=== PATIENT | female | born 1980 | race Caucasian/White ===

== ENCOUNTER 2022-10-07 10:36 | Emergency (ER) | payer OTHER, SELFPAY ==
[2022-10-07 10:38] VITALS: BP 129/79; PULSE 86; RESP 14; TEMP 36.6; O2SAT 100; BMI 26.6
--- NOTE | 2022-10-07 11:14 | CT_ITS ---
STUDY: CT CERVICAL SPINE WITHOUT CONTRAST REASON FOR EXAM: Female, 42 years old. Injury due to a fall. RADIATION DOSAGE (If Supplied By Facility): CTDIvol = ( 25.36 ) mGy, DLP = ( 812.98 ) mGycm TECHNIQUE: High resolution transaxial imaging was performed without contrast material. Sagittal and coronal images were reconstructed. Individualized dose optimization techniques were used for this CT. COMPARISON: None FINDINGS: Normal craniovertebral junction. Normal anterior atlantoaxial articulation. Normal odontoid process. There is straightening of the normal cervical lordosis. Normal vertebral bodies and posterior osseous elements. C2-3: Normal endplates. Normal disc height and morphology. Normal central canal and intervertebral neuroforamina. C3-4: Normal endplates. Normal disc height and morphology. Normal central canal and intervertebral neuroforamina. C4-5: Normal endplates. Normal disc height and morphology. Normal central canal and intervertebral neuroforamina. C5-6: Normal endplates. Normal disc height and morphology. Normal central canal and intervertebral neuroforamina. C6-7: Normal endplates. Normal disc height and morphology. Normal central canal and intervertebral neuroforamina. C7-T1: Normal endplates. Normal disc height and morphology. Normal central canal and intervertebral neuroforamina. Normal visualized soft tissue structures. CT/Spine Cervical without Contras IMPRESSION: Normal unenhanced CT examination of the cervical spine. Electronically Signed: Diego Stoner MD at 11:57 EST ,
--- NOTE | 2022-10-07 11:14 | EKG12_ITS ---
Test Reason : SYNCOPE Blood Pressure : / mmHG Vent. Rate : 084 BPM Atrial Rate : 084 BPM P-R Int : 136 ms QRS Dur : 074 ms QT Int : 360 ms P-R-T Axes : 032 068 062 degrees QTc Int : 425 ms Normal sinus rhythm Normal ECG Confirmed by MARGARITO LOWERY, AISSATOU ([id number]), sound editor TANISHA SALAMANCA ([id number]) on 10/08/2022 11:40:06 AM Referred By: Confirmed By:AISSATOU PIMENTEL MD
--- NOTE | 2022-10-07 11:14 | CT_ITS ---
STUDY: CT BRAIN WITHOUT CONTRAST REASON FOR EXAM: Female, 42 years old. Trauma, headache, syncope. Right periorbital laceration. RADIATION DOSAGE (If Supplied By Facility): CTDIvol = ( 44.99 ) mGy, DLP = ( 812.98 ) mGycm TECHNIQUE: Transaxial CT imaging of the brain was performed without administration of intravenous contrast material. Individualized dose optimization techniques were used for this CT. COMPARISON: No relevant priors. FINDINGS: Mild degree of soft tissue swelling overlying the right orbit suggestive of a small hematoma. Normal calvarium. Normal size ventricles and extra-axial spaces for the patient''s age. Normal white matter tracts of the cerebral hemispheres. Normal basal ganglia and thalami. Normal brainstem. Normal cerebellum. There is no intracranial hemorrhage. There are no findings of an acute ischemic infarction. Normal visualized paranasal sinuses. CT/Brain/Head without Contrast IMPRESSION: Normal unenhanced CT scan of the brain. Soft tissue swelling overlying the right orbit. Electronically Signed: Diego Stoner MD at 11:54 EST ,
--- NOTE | 2022-10-07 11:16 | EX.ED.DYSGE1 ---
HPI History of Present Illness Chief Complaint: Syncope Informant: patient Onset/Context/Timing Onset: - (Yesterday and today see below) Narrative Narrative: Last night, patient was on a chair standing and felt lightheaded, so she sat down and did not realize that she passed out for a relatively brief period of time until her significant other was standing over her yelling at her because she was transiently unresponsive. She then was fine. She did not have a headache although she did 3 days ago, a migraine which she has a history of and takes prescriptions for. Denies any recent illness or injury until today, when she was at work, she bent over to pick something up, she stood up and walked over to the counter and then she felt lightheaded and then she passed out and woke up on the floor with people helping her up. She injured her head with this fall, as well as her right knee. She was able to bear weight on it. She denies any other pain or injury, she does have a headache after this occurred but did not have 1 prior to it or as a prodromal symptom, nor did she have any other prodromal symptoms. She states she has been eating and drinking normally lately. She denies any vertigo symptoms or changes in her vision. She denies any peripheral neurologic symptoms at this time. [facility] Medical History (Updated 10/07/22 @ 14:[address] Raghav Arce MD) GERD (gastroesophageal reflux disease) Migraines Home Medications omeprazole 1 cap PO/SL DAILY 10/07/22 [History Last Taken Unknown] Allergy/AdvReac Type Severity Reaction Status Date / Time azithromycin AdvReac Other Verified 10/07/22 10:41 Social History Smoking Status: Former smoker ROS ROS ED Constitutional Constitutional ED: Denies chills or fever(s) Eyes Eyes: Denies change in vision or diplopia ENT ENT ED: Denies rhinorrhea or sore throat Cardiovascular Cardiovascular: Reports as per HPI, lightheadedness and syncope; Denies chest pain or palpitations Respiratory/Chest Respiratory/Chest: Denies cough or dyspnea Gastrointestinal Gastrointestinal: Denies abdominal pain, diarrhea, nausea or vomiting Genitourinary Genitourinary ED: Denies dysuria or hematuria Musculoskeletal Musculoskeletal: Reports as per HPI and extremity pain; Denies back pain or neck pain Integumentary Reports laceration; Denies abscess or rash Neurologic Neurologic: Reports headache(s); Denies paresthesias or weakness Psychiatric Psychiatric: Denies anxiety or suicidal thoughts EXAM Physical Exam Const Vital Signs: 10/07/22 10:38 10/07/22 14:16 10/07/22 12:37 Temperature 97.9 F Temperature Source Temporal Pulse Rate 86 76 Pulse Rate [Lying] 81 Pulse Rate [Sitting (for 1 minute prior to obtaining)] 76 Pulse Rate [Standing (for 1 minute prior to obtaining)] 82 Respiratory Rate 14 16 Blood Pressure 129/79 H 104/75 Blood Pressure [Lying] 113/71 Blood Pressure [Sitting (for 1 minute prior to obtaining)] 119/70 Blood Pressure [Standing (for 1 minute prior to obtaining)] 124/77 H Blood Pressure Mean 95 84 Blood Pressure Mean [Lying] 85 Blood Pressure Mean [Sitting (for 1 minute prior to obtaining)] 86 Blood Pressure Mean [Standing (for 1 minute prior to obtaining)] 92 Pulse Ox 100 95 Oxygen Delivery Method Room Air Room Air Positive well nourished and well developed General Appearance ED: well developed and NAD HEENT Reports moist mucous membranes HEENT Narrative: 2.5 centimeter linear clean laceration right eyebrow and surrounding contusion/tenderness. No proptosis or enophthalmos. No mid facial tenderness or or tenderness at the zygomatic arch, no infraorbital hypoesthesia. TMs normal with no hemotympanum or otorrhea. No rhinorrhea. No cramer sign. normocephalic Eyes PERRL and EOMs intact bilaterally Eyes Narrative: No pain with extraocular movements or diplopia. No extraocular entrapment. Neck full ROM and supple Neck Narrative: Diffusely tender more to the left paraspinal area no step-off General: tenderness Resp normal respiratory effort and clear to auscultation bilaterally Cardio regular rate, regular rhythm and no murmurs Rate: Negative for bradycardia or tachycardic GI non-tender and non-distended Auscultation: normoactive bowel sounds Palpation: soft Back/Spine no CVA tenderness General Back: other FROM Extremity Extremity Narrative: Tenderness just medial to the right patella where there is a contusion. No deformity. No effusion. Full range of motion extensor mechanism intact, all ligaments stable with short endpoints and no pain on stressing, nor laxity. 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 General Extremety ED: Yes tenderness; Negative for edema or pulses abnormal General Extremity: Negative for edema or pulses abnormal Neuro oriented x3, CN's II-XII intact bilaterally and no sensory deficits noted Sensorium / Orientation: awake and alert Motor Exam: strength 5/5 throughout Skin no rashes or lesions noted Skin Narrative: 2.5 cm right eyebrow laceration see above MDM MDM MDM Narrative Medical decision making narrative: Labs, cardiac work-up, , orthostatics all negative/unremarkable. CT of her head shows nothing acute, no signs of any acute injury nor subarachnoid hemorrhage. Her laceration was repaired see the procedure note. She is ambulatory without symptoms, and had no telemetry events while being monitored in the emergency department for several hours. At this time I feel she can follow-up. Her symptoms did not sound vertiginous. Given a work note at her request for today and tomorrow. Lab Data Attestation: I reviewed the patient's lab results. Labs: Laboratory Results - last 24 hr 10/07/22 10/07/22 10/07/22 11:21 11:21 11:35 WBC 10.2 RBC 4.36 Hgb 13.5 Hct 42.0 MCV 96.3 MCH 31.0 MCHC 32.1 RDW Std Deviation 41.5 RDW Coeff of [place] 11.7 Plt Count 353 MPV 10.3 Immature Gran % (Auto) 0.400 Neut % (Auto) 66.3 Lymph % (Auto) 26.1 [place] % (Auto) 6.5 Eos % (Auto) 0.4 Baso % (Auto) 0.3 Absolute Neuts (auto) 6.8 Absolute Lymphs (auto) 2.66 Nucleated RBC % 0 Sodium 139 Potassium 4.0 Chloride 106 Carbon Dioxide 24.0 Anion Gap 9 BUN 18 Creatinine 0.75 Estim Creat Clear Calc 86.13 Est GFR (MDRD) Af Amer 108 Est GFR (MDRD) Non-Af 89 BUN/Creatinine Ratio 24.0 H Glucose 82 Calcium 8.8 Troponin I High Sens 4 Serum , Qual NEGATIVE Radiography Diagnostic Testing: Clinical Impression(s) from Imaging Studies Brain CT 10/07/22 11:14 IMPRESSION: Normal unenhanced CT scan of the brain. Soft tissue swelling overlying the right orbit. Electronically Signed: Diego Stoner MD at 11:54 EST , Cervical Spine CT 10/07/22 11:14 IMPRESSION: Normal unenhanced CT examination of the cervical spine. Electronically Signed: Diego Stoner MD at 11:57 EST , Knee X-Ray 10/07/22 11:48 IMPRESSION: Normal x-ray examination of the knee. Electronically Signed: Diego Stoner MD at 12:30 EST , Rhythm Strip Rhythm Strip: Sinus Rhythm Rate: 85 Ectopy: None EKG Initial EKG: Attestation: I personally reviewed and interpreted this EKG as follows: Interpretation: Sinus Rhythm and No Acute Injury Pattern Procedures Lacerations R eyebrow: Length: 2.5 cm Depth: Sub Q Shape: Linear Prep: Sterile Conditions and Chlorhexadine Laceration repair: Lidocaine (1%, 2cc) and Local Irrigated (ml): 80 Number of Sutures/Venessa: 4 Suture Information: Ethilon, Simple and 6-0 Discharge Plan Triage Chief Complaint: Syncope ED Provider: Raghav Arce Dx/Rx/DC Orders Clinical Impression: Syncope and collapse, Closed head injury without concussion, Laceration of face Instructions: Causes of Syncope, ED Laceration: All Closures Prescriptions: No Action omeprazole 1 cap PO/SL DAILY Stand Alone Forms: ED Work / School Excuse Primary Care Provider: Sri Gonzalez Referrals: Sri Gonzalez MD [Primary Care Provider] - As soon as possible (sutures should be evaluated for removal in 5-6 days from insertion) Disposition Disposition: Home, Self Care
[2022-10-07] MEDS: Lidocaine/Epi/Tetracaine 50 ML 1 APPLIC TOPICAL (11:33)
[2022-10-07 11:34] LABS: Absolute Lymphocyte Count 2.66 X10^3/uL (0.83-4.51); Absolute Neutrophil Count 6.8 X10^3/uL (2.0-7.7); Basophil# 0.03 X10^3/uL; Basophil% 0.3 % (0-1); Eosinophil# 0.04 X10^3/uL; Eosinophils% 0.4 % (0-5); Hemoglobin 13.5 g/dL (12.0-15.0); Lymphocyte # 2.66 X10^3/ul (0.83-4.51); Lymphocyte % 26.1 % (19-41); Mean Corp Hgb Conc 32.1 g/dL (32-36); Mean Corpuscular Volume 96.3 fL (81-99); Mean Platelet Vol. 10.3 fl (6.2-12.0); Monocyte# 0.66 X10^3/uL; Monocyte% 6.5 % (0-10); NRBC Flagged by Analyzer 0 % (0-5); Neutrophil # 6.76 X10^3/uL (2.7-7.7); Neutrophil % 66.3 % (47-70); Platelet Count 353 K/mm3 (150-450); RBC Distribution Width CV 11.7 % (11.6-14.6); RBC Distribution Width SD 41.5 fl (35.1-43.9); Red Blood Count 4.36 M/mm3 (4.2-5.4); White Blood Count 10.2 K/mm3 (4.4-11.0)
[2022-10-07 11:46] LABS: Anion Gap 9 (5-15); BUN 18 mg/dL (7-18); Calcium,Total 8.8 mg/dL (8.5-10.1); Chloride 106 mmol/L (98-107); Creatinine, Serum 0.75 mg/dL (0.55-1.02); EST Glomerular Filtration Rate 89 mL/min (>60); Est Glom Filt Rate - Afr Amer 108 mL/min (>60); Estimated Creatinine Clearance 86.13 ml/min; Glucose 82 mg/dL (74-106); Sodium Level 139 mmol/L (136-145); Troponin-I HS 4 pg/mL (3.0-54.0)
--- NOTE | 2022-10-07 11:48 | RAD_ITS ---
STUDY: X-RAY - RIGHT KNEE REASON FOR EXAM: Female, 42 years old. Pain following injury. TECHNIQUE: 4 view(s) of the knee. COMPARISON: None. FINDINGS: Normal visualized distal femur. Normal visualized proximal tibia and fibula. Normal proximal tibiofibular articulation. Normal medial femorotibial compartment. Normal lateral femorotibial compartment. Normal patellofemoral articulation. The soft tissue structures are unremarkable. RAD/Knee 4 or More Views IMPRESSION: Normal x-ray examination of the knee. Electronically Signed: Diego Stoner MD at 12:30 EST ,
[2022-10-07 12:04] LABS: Internal QC Validated? YES +Cl - CLEAR BKGD; Pregnancy, Serum, hCG Quali. NEGATIVE Negative
[2022-10-07 12:37] VITALS: BP 104/75; PULSE 76; RESP 16; O2SAT 95
[2022-10-07 14:00] VITALS: RESP 16
[2022-10-07 14:16] VITALS: BP 113/71; BP 119/70; BP 124/77; PULSE 76; PULSE 81; PULSE 82
[2022-10-07] MEDS: 0.9% Normal Saline 1,000 ML 999 ML IV (14:17)
[2022-10-07 14:28] VITALS: BP 103/56; PULSE 72; RESP 16
== END 2022-10-07 15:29 | disposition home or self-care (01) ==
PROVIDERS: Emergency Provider Emergency Medicine; PCP Family Medicine; Visit Provider Emergency Medicine
DX: S01.111A Laceration without foreign body of right eyelid and periocular area, initial encounter (principal); S09.90XA Unspecified injury of head, initial encounter; R51.9 Headache, unspecified; R55 Syncope and collapse; K21.9 Gastro-esophageal reflux disease without esophagitis; Z79.899 Other long term (current) drug therapy; Z87.891 Personal history of nicotine dependence; W19.XXXA Unspecified fall, initial encounter
CPT/HCPCS: 12011; 70450; 72125; 73564; 80048; 84484; 84703; 85025; 93005; 96360; 99285; J7030; A4216

== ENCOUNTER 2022-10-13 13:31 | Emergency (ER) | payer OTHER, SELFPAY ==
[2022-10-13 13:32] VITALS: BP 125/63; PULSE 78; RESP 18; TEMP 36.3; O2SAT 100; BMI 28.4
--- NOTE | 2022-10-13 13:36 | ED.RN ---
PT STATES SHE WAS SEEN IN ER 10/07 UNDER WORKERS COMP BUT DID NOT FILE A FROI. FROI GIVEN TO PT, WORKS AT [employer].
--- NOTE | 2022-10-13 14:54 | EX.ED.DYSGE1 ---
HPI History of Present Illness Chief Complaint: Suture Remv Informant: patient Narrative Narrative: Presents here for suture removal. Patient had syncopal episode 6 days ago while at work. Hit her head. She had 4 sutures to her right brow. She injured her knee also. She had CT head that was negative knee x-ray was negative. She was discharged. She states 4 days ago had another syncopal episode seen at [facility] evaluate has a neurology follow-up. She has not gone back to work. She states she did not fill out a workers injury form when she was here 6 days ago. Her work is aware and has kept her at home. Denies any new episodes since then. Patient works in the kitchen. Reports prodromal lightheaded prior episodes. No chest pains or shortness of breath. [facility] Medical History GERD (gastroesophageal reflux disease) Migraines Home Medications omeprazole 1 cap PO/SL DAILY 10/07/22 [History Last Taken Unknown] Allergy/AdvReac Type Severity Reaction Status Date / Time azithromycin AdvReac Other Verified 10/13/22 13:34 Social History Smoking Status: Former smoker ROS ROS ED Constitutional Constitutional ED: Denies chills, fever(s) or sweats Eyes Eyes: Denies change in vision ENT ENT ED: Denies dysphagia or sore throat Cardiovascular Cardiovascular: Denies chest pain, leg edema, palpitations or racing heartbeat Respiratory/Chest Respiratory/Chest: Denies cough, dyspnea or dyspnea on exertion Gastrointestinal Gastrointestinal: Denies abdominal pain, diarrhea, nausea or vomiting Genitourinary Genitourinary ED: Denies dysuria, hematuria or urinary frequency Musculoskeletal Musculoskeletal: Denies back pain, extremity pain or neck pain Integumentary Denies rash or wounds Neurologic Neurologic: Denies headache(s), paresthesias or weakness EXAM Physical Exam Const Vital Signs: 10/13/22 13:32 Temperature 97.4 F L Temperature Source Temporal Pulse Rate 78 Respiratory Rate 18 Blood Pressure 125/63 H Blood Pressure Mean 83 Pulse Ox 100 Oxygen Delivery Method Room Air Positive well nourished and well developed General Appearance ED: well developed and NAD HEENT Reports moist mucous membranes HEENT Narrative: 4 sutures right upper lateral brow intact. Wound clean, dry, intact. No drainage. No erythema. normocephalic Eyes PERRL, EOMs intact bilaterally and conjunctivae normal General Eye ED: Yes normal appearance of both eyes Neck no lymphadenopathy and supple General: Negative for tenderness Chest Wall Chest: Negative for tenderness Resp normal respiratory effort and normal air movement Effort and Inspection: symmetric chest movement; Negative for respiratory distress Cardio regular rate, regular rhythm and no murmurs Peripheral Pulses: pulses 2+ throughout GI normal to inspection, nondistended, normoactive bowel sounds and non-tender Palpation: Negative for guarding or rebound tenderness present Back/Spine no CVA tenderness and no thoracic nor lumbar tenderness Extremity normal to inspection General Extremety ED: Negative for edema or tenderness General Extremity: Negative for edema Neuro oriented x3 and no sensory deficits noted Sensorium / Orientation: awake and alert Skin no rashes or lesions noted and no wounds MDM MDM MDM Narrative Medical decision making narrative: Wound appears to be healing well 4 sutures were removed. As for her syncopal episodes, no formal Worker's Compensation forms were filled out. 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 She will follow-up with occupational health. Discharge Plan Triage Chief Complaint: Suture Remv ED Provider: Davin Esteban Dx/Rx/DC Orders Clinical Impression: Visit for suture removal, Syncope and collapse, Closed head injury without concussion, Laceration of face Instructions: Causes of Syncope, Sutr or Stap Removal Prescriptions: No Action omeprazole 1 cap PO/SL DAILY Primary Care Provider: Sri Gonzalez Referrals: Sri Gonzalez MD [Primary Care Provider] - Activity Restrictions/Additional Instructions: Follow-up with occupational health with restrictions as noted. Disposition Disposition: Home, Self Care
== END 2022-10-13 15:03 | disposition home or self-care (01) ==
LOC: ED 14:58
PROVIDERS: Emergency Provider Emergency Medicine; PCP Family Medicine; Visit Provider Emergency Medicine
DX: Z48.02 Encounter for removal of sutures (principal); Z87.891 Personal history of nicotine dependence
CPT/HCPCS: 99282